=== PATIENT | male | born 1950 | race Caucasian/White ===

== ENCOUNTER 2017-02-01 19:49 | Inpatient (IN) | payer SELFPAY ==
[~2017-02-01] VITALS: Ht 182.9 cm; Wt 77.3 kg
--- NOTE | ~2017-02-01 | HP ---
PATIENT'S NAME: SHAINA KILPATRICK [facility] AGE: 66 Y [address] ROOM: G6323 [place], [place] [address] [facility]ATION: [facility] ADMIT DATE: 02/01/2017 History & Physical DISCHARGE DATE: FAMILY PHYSICIAN: PHYSICIAN, UNKNOWN ATTENDING PHYSICIAN: ROBLES PINEDA DATE OF SERVICE: CHIEF COMPLAINT: Lightheadedness and syncope. HISTORY OF PRESENT ILLNESS: This is a 66-year-old male who rarely see a physician and does not have any primary care physician and says that he does not have any past medical history and is generally healthy per the patient. The patient was never a cigarette smoker and also does not use alcohol. His father does have a problem with the heart, which he states is from the slow heart rate, but he does not know much details about it. His mother does not have any heart problem. He is the only son and does not have any sibling. The story is that he was gardening last night around 7 p.m. in the yard and while he was in the kneeling position, the patient felt lightheaded and what he described as vertigo and after that the patient did not remember much and he was found by the to be confused and disoriented and he was having a little bit of slight right-sided facial droop, but he was not really talking much, but he was also not making much sense. He could have had a slurred speech, but the family member were not so sure. The patient was what they describe as unresponsive where he was not really following commands or talking and they say that the patient was like that for roughly 20-30 minutes according to the family member. The called the ambulance and the patient was brought here. During the ambulance ride, the patient was found to have heart rate in the 40, the blood pressure was not clear whether it was low or normal, but heart rate was found to be in the 40s, and the patient was given one dose of atropine in the ambulance, and the patient responded and became more alert. When the patient arrived here, heart rate went down again to the 40s and the patient again became confused and lethargic and another dose of atropine was given in the emergency room and the patient became more alert. During all this time, the patient denies any chest pain, shortness of breath, blurry vision, diaphoresis, nausea, vomiting, palpitation, or cough. The patient has never had this symptom before. The patient says his appetite has been fairly good, he drank and he ate normal, and he makes good urine. He said the urine color is clear yellow. Denies any trauma. He does state that his father also has a problem with the slow heart rate, but he does not know much details about that. The told me that they usually sometimes check blood pressure at home, he usually runs in the 100-110 systolic, heart rate usually runs in the 50s at home. PATIENT'S NAME: SHAINA KILPATRICK [facility] AGE: 66 Y [address] ROOM: [address] [address] LOC[facility] ADMIT DATE: 02/01/2017 History & Physical DISCHARGE DATE: FAMILY PHYSICIAN: PHYSICIAN, UNKNOWN ATTENDING PHYSICIAN: ROBLES PINEDA REVIEW OF SYSTEMS: As mentioned in history of present illness. All other system reviewed were negative except those mentioned in history of present illness. PAST MEDICAL HISTORY: No known past medical history. ALLERGIES: NO KNOWN DRUG ALLERGIES. HOME MEDICATIONS: None. SOCIAL HISTORY: The patient denies any alcohol, cigarette, or illegal drug use. FAMILY HISTORY: Father has a sinus bradycardia, but details not clear. Mother has diabetes and also breast cancer. He is the only son. PAST SURGICAL HISTORY: None. PHYSICAL EXAMINATION: VITAL SIGNS: Temperature 98, blood pressure 120/70, heart rate 61, saturation 100% on 1 L nasal cannula, and respiration 14. GENERAL APPEARANCE: Alert and oriented x3, in no acute distress. HEENT: Pupils equally round and reactive to light. Extraocular muscles intact. Anicteric sclerae. Nasal turbinates are normal bilaterally. Moist oral mucosa. NECK: No JVD. CARDIOVASCULAR: Regular rate and rhythm. Normal S1, S2. No murmur, no rubs, no gallops. RESPIRATORY: Clear. Chest wall nontender to palpation. ABDOMEN: Soft, nontender, nondistended, normal bowel sounds, and no hepatosplenomegaly. Bowel sounds are present. EXTREMITIES: No edema in upper or lower extremities. NEUROLOGIC: Grossly nonfocal. Cranial nerves 2 through 12 intact. No slurred speech. No facial droop. No tongue deviation upon protrusion. Pronator drift negative. Babinski negative. Sensation and muscle strength are intact. Proprioception and vibration also intact. Fqtgns-cq-phic intact. Kqib-sn-xzpv intact. In general, grossly unremarkable. SKIN: No ulcer, no rash, no cyanosis. MUSCULOSKELETAL: No joint pain and no muscle pain. Range of motion intact. PATIENT'S NAME: SHAINA KILPATRICK [facility] AGE: 66 Y [address] ROOM: [place] [address] LOC[facility]: [facility] ADMIT DATE: 02/01/2017 History & Physical DISCHARGE DATE: FAMILY PHYSICIAN: PHYSICIAN, UNKNOWN ATTENDING PHYSICIAN: ROBLES PINEDA LABORATORY DATA: Lactic acid 0.8. Troponin less than 0.04 x2. CPK 178 x2. CK-MB 1.8 x2. I think the second set was a duplicate of the first set. White blood cells 7.1, hemoglobin 12.7, hematocrit 38.2, MCV 90.1, platelet 205, glucose 84, and creatinine 1.0. Sodium 143, potassium 3.9, chloride 110, BUN 24, CO2 25, calcium 8.0, total protein 6.6, albumin 3.7, AST 16, ALT 22, alkaline phosphatase 48, total bilirubin 0.4, magnesium 2.1, anion gap 11.9, and GFR more than 60. INR 1.05, PT 28. Urinalysis negative for UTI. Urine drug screen negative. Alcohol level, Tylenol, and aspirin level all less than the toxic level. CK-MB was 1.8, the second set was 1.8, but I think this is duplicate from the first set. TSH 1.9. Free T4 1.0. Procalcitonin less than 0.05. D-dimer 0.3. IMAGING STUDIES: 1. Chest x-ray on admission, the official reading is pending, by review unremarkable. 2. CT of the brain without contrast based on the preliminary report on admission was unremarkable. 3. EKG: Total of 4 EKGs were performed. The first EKG was performed on the ambulance and it was done on February 01, 2017, at 7:33 p.m., it shows sinus bradycardia, heart rate of 43 beats per minutes, MS of 0.178 seconds, QTc of 0.439 seconds, QRS of 0.108 seconds, and I do appreciate a T-inversion in the lead #3. No prior EKG for comparison. Repeat EKG here in the emergency room on February 01, 2017 at 7:49 p.m. show sinus rhythm, heart rate 91, this is after atropine, MS of 160 milliseconds, QRS of 140 milliseconds, QTc 450 milliseconds, and I could appreciate ST-depression in lead V3, V4, V5, V6, II, III, and aVF, which corresponds to septal, lateral, and inferior leads. Since that also had a T-inversion as well in lead III, but the T-wave looks flattened in T3 on this EKG. Repeat EKG in the #3 on February 01, 2017, at 7:50 p.m. shows sinus rhythm, heart rate of 87 beats per minute, MS interval 163 milliseconds, QRS duration 108 milliseconds, QTc 490 milliseconds, and still with ST-depression in the anterior, septal, lateral, and inferior leads in V2, V3, V4, V5, V6, II, III, and aVF. Still with a T-inversion in the lead #3. Repeat EKG #4 on February 01, 2017 at 8:57 p.m. shows sinus rhythm, heart rate of 61 beats per minute, MS 167 milliseconds, QRS 108 milliseconds, and QTc [address] depression already resolved, but still has the persistent T-inversion in the lead #3. ASSESSMENT AND PLAN: 1. Regarding his syncope in the setting of sinus bradycardia and transient ST-depression (no chest pain) as well as persistent T-inversion on the EKGs: Differential here could include ischemic heart disease. The patient is a 66-year- PATIENT'S NAME: SHAINA KILPATRICK [facility] AGE: 66 Y [address] ROOM: [id number] [place] [id number] LOC[facility]: [facility] ADMIT DATE: 02/01/2017 History & Physical DISCHARGE DATE: FAMILY PHYSICIAN: PHYSICIAN, UNKNOWN ATTENDING PHYSICIAN: ROBLES PINEDA old male, but does not really have cardiac risk factors, but at the same time, he rarely sees a physician and rarely has regular followup or checkup. The plan will be n.p.o. after midnight. Continue telemetry monitoring and leave the pacing pads on the patient at all times. He can also use epinephrine drip or dopamine drip in case the patient has symptomatic sinus bradycardia. I will get an echo in the morning transthoracic and also get EKG in the morning and again cycle cardiac enzymes every 6 hours. I will consult Cardiology in the morning. The patient denies any chest pain. If the enzymes goes up or has chest pain, I will do acute coronary syndrome protocol. Further plan depends on clinical course. I will check A1c and also a lipid panel in the morning. Can have cardiac diet until midnight and then n.p.o. Atropine can also be used in case of symptomatic bradycardia. I do not appreciate heart block on EKG. 2. Regarding his questionable history of transient slurred speech and confusion: Will observe closely, will follow up with official report of head CT which was initially interpreted as preliminary, will consider MRI brain and MRA brain and neck after CT head without contrast's report is finalized. 2. Regarding his deep vein thrombosis prophylaxis: Compression devices for now in case the patient will require any invasive intervention. 3. Code status: He is a full code. Time spent in care on the day of admission 35 minutes including chart review, interviewing the patient, examining the patient, addressing all the questions and concern that the patient had, I also went over the plan of care in detail with the patient and nurses and also with the patient's family member. The patient's name is Klarissa, phone #[phone]. The patient and the patient's family member are up-to-date with the care plan and is in agreement with the plan. Further plan depends on clinical course. ROBLES PINEDA MD CC/dashawnl /[id number] D: T: 359 HISTORY & PHYSICAL
--- NOTE | ~2017-02-01 | ECHO ---
Transthoracic Echocardiography Report (TTE) Demographics Patient Name SHAINA KILPATRICK Date of Study 02/02/2017 J Patient Number [id number] Visit Number [id number] Date of 1950 Room Number G6323 Gender Male Number Age 66 year(s) Referring Nora Nieto MD Environmental Maintenance Worker Ciera Brown [facility] Physician Physician Interpreting Samira Johnson Bench Hand Machine Physician Evon JOHN Supervising Ordering MD/MLP Physician Nurse Stress Food Porter Conclusions Contractility Score Summary Normal Left Ventricular contractility was noted. Summary The estimated left ventricular ejection fraction is 55%. The left ventricle is normal in size . Diastolic assessment reveals Grade II pseudonormal diastolic function. . The left atrium is mildly dilated by LA volume index measurement. Trivial mitral regurgitation by color Doppler. Mild tricuspid regurgitation by color Doppler. Normal estimated pulmonary artery pressure. Procedure Type of Study TTE procedure:2D Echocardiogram. Procedure Date Date: 02/02/2017 Start: 09:05 AM Study Location: Inpatient Portable Technical Quality: Good visualization Indications:Syncope. Appropriate Use Criteria: 9 Patient Status: Routine HR: 45 bpm BP: 115/56 mmHg M-Mode/2D Measurements LV Diastolic Dimension: 5.12 cm LV Systolic Dimension: 3.03 cm LV Septum Diastolic: 1 cm LV Septum Systolic: 1.17 cm LV PW Diastolic: 1.02 cm LV PW Systolic: 1.13 cm Cardiac Output: 3.89 l/min AO Root Dimension: 2.6 cm RV Diastolic Dimension: 3.31 cm LA Dimension: 3.9 cm EF Estimated: 55 % LA volume: 77 ml RV Base: 3.1 cm LVOT: 2 cm RV Mid: 3.21 cm LVOT VTI: 27.5 cm RV Length: 6.76 cm LV Stroke volume: 86.35 ml TDI-S': 14.7 cm/s Doppler Measurements AV Peak Velocity: 1.68 m/s MV Peak E-Wave: 0.83 m/s AV Peak Gradient: 11.29 mmHg MV Peak A-Wave: 0.52 m/s AV Mean Gradient: 5 mmHg MV E/A Ratio: 1.61 LVOT Peak Velocity: 1.24 m/s MV P1/2t: 76 msec TR Gradient:10.63 mmHg PV Peak Velocity: 1.06 m/s Estimated RAP:10 mmHg PV Peak Gradient: 4.49 mmHg Estimated RVSP: 21 mmHg Estimated PASP: 20.63 mmHg E' Septal Velocity: 0.07 m/s A' Septal Velocity: 0.12 m/s Findings Left Ventricle The left ventricle is normal in size . Diastolic assessment reveals Grade II pseudonormal diastolic function. . Right Ventricle Normal right ventricle structure and function. Left Atrium The left atrium is mildly dilated by LA volume index measurement. Right Atrium Normal right atrial size. IVC measures 1.7 cm with inspiratory collapse. Mitral Valve Trivial mitral regurgitation by color Doppler. Aortic Valve Normal aortic valve structure and function. Tricuspid Valve Mild tricuspid regurgitation by color Doppler. Normal estimated pulmonary artery pressure. Pulmonic Valve Normal pulmonic valve structure and function. Pericardial Effusion No evidence of pericardial effusion. Pleural Effusion No evidence of pleural effusion. Contractility Score LV regional wall motion:(0-Non visualized 1-Normal 2-Hypokinesis 3-Akinesis 4-Dyskinesis 5-Aneurysm) Signature dtt: Alexys Hogan dtd: 02/02/17 0905 Physician Self Edit
--- NOTE | ~2017-02-01 | CON ---
PATIENT'S NAME: SHAINA KILPATRICK [facility] AGE: 66 Y [address] ROOM: [place] [address] LOCATION: [facility] ADMIT DATE: 02/03/2017 Consultation DISCHARGE DATE: FAMILY PHYSICIAN: PHYSICIAN, UNKNOWN ATTENDING PHYSICIAN: ROBLES PINEDA DATE OF CONSULTATION: 02/03/2017 REFERRING PHYSICIAN: Alexys Hogan MD CONSULTATION NOTE REFERRING PHYSICIAN: This is a consult for Dr. Hinojosa, hospitalist. HISTORY OF PRESENT ILLNESS: This 66-year-old gentleman is referred for rehabilitation evaluation. He was admitted on 02/01/2017 with sudden onset of lightheadedness and dizziness with vertigo, some confusion also, and the tells me that she notes initially a very mild right facial droop. All have now improved back to normal. He had also some questionable slurring of his speech. No previous ill health. No previous similar condition. Denied any trauma. No fever. No cough. No expectoration. No shortness of breath. No chest pain. Denied any previous heart issues. Does not see any doctor, and has been doing well and very active in his words. Does not smoke and/or drink. He denied at the present time, any headache. No double vision. No difficulty with his vision. No difficulty with his balance at the present time. No dizziness, and he can breathe well. He can talk, comprehend, express without difficulty. His speech is clear and not wet. He can at the present time move all 4 without difficulty. Muscle strength throughout 4+ to 5/5. Deep tendon reflexes are present and equal throughout, 1+. He has good bowel and bladder control. No sensation decrease or loss. No weakness. No coordination difficulty. He has good bowel and bladder control as I mentioned. VITAL SIGNS: Blood pressure 137/61, temperature 97.1, pulse 56 and regular, and respiratory rate 18. He is 5 feet 11 inches and weighs 77.3 kg. He can ambulate without difficulty. IMAGING STUDIES: PATIENT'S NAME: SHAINA KILPATRICK [facility] AGE: 66 Y [address] ROOM: [address] [address] LOCATION: [facility]U ADMIT DATE: 02/03/2017 Consultation DISCHARGE DATE: FAMILY PHYSICIAN: PHYSICIAN, UNKNOWN ATTENDING PHYSICIAN: ROBLES PINEDA At the present time, his MRI shows a small acute/subacute ischemic infarct in the left thalamus. CURRENT MEDICATIONS: He is on the following medications: 1. Lipitor. 2. Aspirin. 3. Sodium chloride 0.9%. 4. Atropine solution. 5. Dextrose 5%. This gentleman upon admission had slight bradycardia around 40s, at the present time is doing well. ASSESSMENT AND PLAN: At the present time, he is doing well. I would recommend that he should not drive until he is re-evaluated, and I would like to follow on him on outpatient basis. All the above was explained to him, and please see the orders, and he verbalized understanding and agreement. Thank you for this referral. I will be following alongside with you. MD AUTUMN GASPAR/modl /[id number] d: 02/03/17 2151 t: 02/04/17 0810, CONSULTATION REPORT
--- NOTE | ~2017-02-01 | DS ---
PATIENT'S NAME: SHAINA KILPATRICK [facility] AGE: 66 Y [address] ROOM: [address] [place], [place] [address] LOCATION: [facility]U ADMIT DATE: 02/03/2017 Discharge Summary DISCHARGE DATE: 02/05/2017 FAMILY PHYSICIAN: Physician, Unknown ATTENDING PHYSICIAN: Fabian Melendez PRIMARY DIAGNOSES: 1. Left thalamic cerebrovascular accident, ischemic. 2. Patent foramen ovale. 3. Bradycardia. 4. Acute encephalopathy. 5. Right-sided weakness. OPERATIONS/PROCEDURES: Echocardiography was obtained on 02/02/2017, demonstrating normal ejection fraction at 50% to 55%, diastolic dysfunction, and mildly dilated left atrium. Lexiscan Cardiolite performed on 02/03/2017, was negative for ischemia. Transesophageal echocardiography obtained on 02/05/2017, confirmed an ejection fraction of 60%, [id number] dilatation of left atrium, and mildly positive bubble study consistent with a small patent foramen ovale. CT scan of the brain obtained on 02/01/2017, was negative for any acute intracranial process. MRI scan of the brain obtained on 02/02/2017, demonstrated left thalamic infarct 12 x 7 mm. MRA of the neck obtained on 02/03/2017, showed normal carotid arteries. HISTORY OF PRESENTING ILLNESS/REASON FOR ADMISSION: Please refer to the H and P dictated on 02/01/2017. HOSPITAL COURSE: The patient was admitted to hospital as noted above with a presumptive diagnosis of syncope. His initial evaluation revealed bradycardia and it was felt that he probably had symptomatic bradycardia. Interestingly, he had some right-sided weakness, expressive aphasia, and right- sided facial droop at the point of his syncopal episode, but these had resolved by his emergency room evaluation. He did undergo a fairly extensive evaluation including head CT, which was negative for stroke and was seen and evaluated by Cardiology. It was not felt there were any strong indications for permanent pacemaker placement. He was placed on the progressive care unit and monitored. He remained hemodynamically stable over the course of his hospital stay. After his initial evaluation on admission, it was revealed that he had experienced the right-sided weakness and expressive aphasia. Subsequently, MRI scan of the brain was obtained and this demonstrated the left thalamic stroke. He did have Physical Therapy, Occupational Therapy, and Speech Therapy evaluations as well as Physiatry evaluation by Dr. Cornell. He was placed on aspirin PATIENT'S NAME: SHAINA KILPATRICK [facility] AGE: 66 Y [address] ROOM: [address] [place], [place] [address] LOCATION: [facility]U ADMIT DATE: 02/03/2017 Discharge Summary DISCHARGE DATE: 02/05/2017 FAMILY PHYSICIAN: Physician, Unknown ATTENDING PHYSICIAN: Fabian Melendez therapy and recommended to start statin therapy. I spent a significant amount of time explaining therapeutic risks and benefits with statin therapy, but the patient ultimately refused to take statins. He was agreeable to taking aspirin. Based on his clinical presentation and relative paucity of stroke risk factors including normal blood pressure, normal cholesterol, no strong family history, and no other stroke risk factors, it was suspected that the patient might have patent foramina ovale. He underwent PER with the findings outlined above. We did obtain Neurology consultation expecting to discuss the need for long-term anticoagulation. Anticoagulation was recommended by Cardiology on the basis of suspicion for cardioembolic source for stroke. This was twofold based on a presence of a small PFO and also at least mild suspicion for paroxysmal atrial fibrillation. He did not have any atrial fibrillation over the course of his hospital stay here. Neurology did not recommend anticoagulation, however, and did suggest aspirin and statin therapy. The patient continued to refuse statin therapy. By the end of the day on 02/05/2017, it was felt he would be stable enough for discharge to home. We spent a long time discussing Neurology specialty evaluation and Cardiology specialty evaluation, and their respective recommendations. The patient requested for discharge to home and to get a second opinion by Cardiology and Neurology on an outpatient basis. He was agreeable and in fact requested for anticoagulation therapy with novel anticoagulants including Xarelto. We discussed anticoagulant risks and options including warfarin versus a novel anticoagulant. He decided that he wanted Xarelto in order to preclude the possibility of interacting with green leafy vegetables as he is strongly plant based diet. I did place him on Xarelto 20 mg p.o. daily and counseled the potential risks including severe side effects such as gastrointestinal bleeding, intracranial hemorrhaging, etc. He voiced understanding and requested to be placed on this medication to preclude the possibility of recurrent risk in light of the possibility of paroxysmal atrial fibrillation and the presence of the PFO. Lastly, we recommended extended cardiac monitoring with a 2-week event monitor. This was arranged at the point of discharge, however, because the patient did not have any insurance and it was required to pay a significant amount of money up front, he declined event monitor placement. DISCHARGE INSTRUCTIONS: Diet, cardiac prudent as tolerated. Activity, as tolerated. No driving until reevaluated by his primary care provider. MEDICATIONS: 1. Xarelto 20 mg p.o. daily. 2. Atorvastatin 40 mg p.o. daily (he is currently refusing to take this). FOLLOWUP: He will follow up with Dr. Yi, chair, in 5 to 7 days. PATIENT'S NAME: SHAINA KILPATRICK [facility] AGE: 66 Y [address] ROOM: [place] [address] LOCATION: [facility]U ADMIT DATE: 02/03/2017 Discharge Summary DISCHARGE DATE: 02/05/2017 FAMILY PHYSICIAN: Physician, Unknown ATTENDING PHYSICIAN: Fabian Melendez He will follow up with Dr. Guillermo, neurologist, for a second opinion regarding recommendation for anticoagulation and stroke therapy. He will follow up with Dr. Cornell, Physiatry, in 1 to 2 weeks. He will also contemplate and schedule outpatient followup with his primary care provider of his choice in the upcoming 7 to 10 days. He was undecided on primary care provider at the time of discharge. CONDITION ON DISCHARGE: Good. TOTAL TIME SPENT ON DISCHARGE PROCESS: 60 minutes. MD NATHAN MORTON/holly /[id number] d: 02/06/17 0333 t: 02/19/17 1726, DISCHARGE SUMMARY
--- NOTE | ~2017-02-01 | ECHO ---
Transesophageal Echocardiography Report (PER) Demographics Patient Name SHAINA KILPATRICK Date of Study 02/05/2017 Patient Number [id number] Visit Number [id number] Date of 1950 Room Number G6323 Gender Male Number Age 66 year(s) Referring Samira Johnson Senior Landscape Architect Thania Barnard MD RDCS, RVT Physician Interpreting Samira Systematic Theology Professor Physician Alex Barnard MD Supervising Ordering Samira JOHN/MLP Physician Alex Barnard MD Nurse Stress Manager Field Conclusions Summary The left ventricle is normal in size . Estimated EF: 60 %. The left atrium is mildly to moderately dilated. No left atrial masses including the appendage. Mildly positive bubble study. Small PFO Procedure Type of Study PER procedure Procedure Date Date: 02/05/2017 Start: 09:23 AM Study Location: Inpatient Portable Technical Quality: Adequate visualization Indications:Syncope, CVA and Bradycardia. Appropriate Use Criteria: 9 Patient Status: Routine HR: 66 bpm BP: 146/69 mmHg O2 Saturation: 90 % PER Performed By: Alexys Hogan MD Type of Anesthesia: Moderate sedation Findings Left Ventricle The left ventricle is normal in size . Estimated EF: 60 %. Right Ventricle Normal right ventricular size and function. Left Atrium The left atrium is mildly to moderately dilated. No left atrial masses including the appendage. Right Atrium Mildly positive bubble study. Small PFO Mitral Valve Borderline prolapse of the mitral valve. Trivial mitral regurgitation with multiple small jets Aortic Valve Normal trileaflet aortic valve. There is trivial aortic regurgitation. Tricuspid Valve Trivial tricuspid regurgitation . Pulmonic Valve Trivial pulmonic valve regurgitation. The pulmonic valve is not well visualized. Pericardial Effusion No pericardial effusion. Miscellaneous No significant thoracic aorta atherosclerosis. Signature dtt: Alexys Hogan dtd: 02/05/17 0923 Physician Self Edit
--- NOTE | ~2017-02-01 | ER ---
PATIENT'S NAME: SHAINA KILPATRICK [facility] AGE: 66 Y [address] ROOM: [place] [address] LOCATION: GPCU ADMIT DATE: 02/01/2017 ER/Outpatient Report DISCHARGE DATE: FAMILY PHYSICIAN: PHYSICIAN, UNKNOWN ATTENDING PHYSICIAN: ROBLES PINEDA Time of Arrival: 1949 hours. Time of Evaluation: 1949 hours. CHIEF COMPLAINT: Unresponsive. HISTORY OF PRESENT ILLNESS: The patient is a 66-year-old male, who presents to the emergency department today after an unresponsive episode. The patient is accompanied by his . Apparently, the patient was out gardening when he became tired and slumped to the ground. He was unresponsive for about 15 minutes. There was no loss of pulse. Denies any fevers or chills. No nausea or vomiting. No diarrhea or constipation. No headache. No abdominal pain. Denies any chest pain or shortness of breath beforehand. He reports he felt a coming on pain 0/10 in severity. When EMS arrived, they did note that his heart rates were in the 40s. They did give 1 mg of atropine. The patient did become more responsive. He is brought to the emergency department for further evaluation and treatment. PAST MEDICAL HISTORY: None. PAST SURGICAL HISTORY: None. SOCIAL HISTORY: The patient denies any tobacco, alcohol, or illicit drug use. ALLERGIES: NO KNOWN DRUG ALLERGIES. MEDICATIONS: None. PRIMARY CARE DOCTOR: None. REVIEW OF SYSTEMS: All systems are reviewed by myself and are negative with the exception of PATIENT'S NAME: SHAINA KILPATRICK [facility] AGE: 66 Y [address] ROOM: [place] [address] LOCATION: GPCU ADMIT DATE: 02/01/2017 ER/Outpatient Report DISCHARGE DATE: FAMILY PHYSICIAN: PHYSICIAN, UNKNOWN ATTENDING PHYSICIAN: ROBLES PINEDA those discussed in the HPI and past medical history. PHYSICAL EXAMINATION: VITAL SIGNS: Weight 75.5 kg, blood pressure 166/76, pulse 95, respiratory rate 16, temperature 96.7, oxygen saturation 100% on room air. GENERAL: The patient is a 66-year-old male, who appears stated age. He is sleepy, arousable to voice. He is oriented to person, place, time, and time. HEENT: Pupils are equal, round, and reactive to light and accommodation. Extraocular motions are intact. Nares are patent bilaterally. TMs are clear. Mucous membranes are moist. Oropharynx is otherwise clear. NECK: Supple. There is no nuchal rigidity. CARDIOVASCULAR: Regular rate and rhythm. No murmurs, rubs, or gallops. LUNGS: Clear to auscultation bilaterally. No wheezes, rales, or rhonchi. ABDOMEN: Soft, nontender, and nondistended. No rebound, rigidity, or guarding. MUSCULOSKELETAL: The patient moves all 4 extremities. NEUROLOGICAL: Normal facial sensation. Normal facial movement. No slurring of the speech. Normal shoulder shrug. Equal shipping packer strength bilaterally. No pronator drift. 5/5 muscle strength bilateral upper and lower extremities. Downward going toes. No clonus. 2/4 reflexes. SKIN: Warm and dry. LABORATORY DATA AND X-RAYS: EKG is obtained at 1954 hours, is interpreted by myself shows sinus rhythm with a rate of 91, normal axis, normal interval. There is ST depression in V4 through V6. CT scan of the brain is obtained. I have discussed the results with radiologist, shows no acute process. Alcohol is less than 0.01. Acetaminophen is less than 2. Salicylate is normal. Free T4 and TSH are normal. Pro-BNP is normal. CMP is normal. LFTs are normal. Magnesium is normal. Cardiac enzymes normal. Chest x-ray shows no acute process. Urinalysis is unremarkable. Procalcitonin is normal, less than 0.05. D-dimer is normal. CBC is normal. Coags are normal. Lactate is normal. Repeat EKG at 2102 hours is obtained, is interpreted by myself shows sinus rhythm with a rate of 61, normal axis, normal interval. No ST elevation, ST depression. There are T-wave inversions in III and aVF. IMPRESSION: 1. Syncope. 2. Sinus bradycardia. 3. Abnormal EKG with ST depression and T-wave inversions noted. 4. Altered mental status. 5. Initial visit. PATIENT'S NAME: SHAINA KILPATRICK [facility] AGE: 66 Y [address] ROOM: [address] [address] LOCATION: GPCU ADMIT DATE: 02/01/2017 ER/Outpatient Report DISCHARGE DATE: FAMILY PHYSICIAN: , UNKNOWN ATTENDING PHYSICIAN: ROBLES PINEDA EMERGENCY DEPARTMENT COURSE: The patient was brought back to the examination room. Seen and evaluated by myself immediately upon arrival. IV is established. Laboratory analysis and imaging are obtained as described above. The patient was given 2 L normal saline. He was more responsive, and then during his stay as well he did decline unresponsiveness. His heart rate also decreased, and we did give another 0.5 mg of atropine, which seemed to help both his heart rate as well as his mental status. I have discussed results with the patient and his and family, who are at the bedside. I have recommended admission to the hospital for further evaluation, treatment, and management. I have contacted Dr. Pineda with the Hospitalist Service. He has seen and evaluated the patient down here in the emergency department. Please see his dictation. DISPOSITION: The patient is admitted under the care of the Hospitalist Service and Dr. Pineda in stable condition. DO APURVA ESPOSITO/modl /[id number] d: 02/02/17252 t: 02/02/171932, OUTPATIENT REPORT
--- NOTE | ~2017-02-01 | ESTC ---
Cardiac Perfusion Imaging Demographics Patient Name SHONNA Ortiz Gender Male Patient Number [id number] Race Visit Number [id number] Ethnicity Corporate ID Room Number G6323 Accession Number [id number] Height 72 inches Date of 1950 Weight 170 pounds A Interpreting Bruce Flores Date of study 02/03/2017 Physician MD Supervising /GLADIS Jimenez APRN NM Technologist [place] Bermeo Ordering Physician Stress manufacturing production technician Stress ECG Reading Eduarda Jimenez APRN Nurse Lisa Hogan RN Physician The procedure was explained in detail to the patient. Risks, complications and alternative treatments were reviewed. Written consent was obtained. Medications Reviewed with Patient prior to Procedure. Procedure Procedure Type: Nuclear Stress Test:Pharmacological, Lexiscan, Cardiolite Stress Test Procedure Start time: 02/03/2017 10:02 End time: 02/03/2017 10:15 Indications: Syncopal Episode. Conclusions Summary Perfusion Images: The overall quality of the study is good. Left ventricular cavity is noted to be normal on the stress and normal on the rest images. There is no evidence of abnormal lung activity. The right ventricle is not visualized an cannot be assessed. Impression ECG portion of lexiscan stress test is clinically negative for ischemia by diagnostic criteria. Myocardial perfusion imaging is normal. The apical wall matched defect is consistent with apical thinning. Overall left ventricular systolic function was normal without regional wall motion abnormalities. Calculated LVEF is 63% and TID ratio is 1.04. There are no previous studies for comparison . Stress Protocols Resting ECG Normal sinus rhythm. Pre-stress physical exam: Patient assessed by Sonya GOODWIN prior to testing. Predicted HR: 156 bpm HR response: Appropriate BP response: Appropriate Reason for termination:Infusion complete ECG Findings No ECG changes suggestive of ischemia. Arrhythmias No rhythm abnormality. Symptoms Shortness of breath. Warmth Complications Procedure complication: None. Stress Interpretation Appropriate hemodynamic response to Lexiscan. No significant ST-T wave changes with Lexiscan. ECG portion is negative for ischemia by diagnostic criteria. Will correlate with nuclear images. Imaging Results Summed scores - Summed stress score: 5 - Summed rest score: 7 - Summed difference score: -2 Stress ejection Ejection fraction:64 % EDV :143 ml ESV :52 ml Stroke volume :91 ml LV mass :137 gr Imaging Protocols Rest Stress Isotope:Tc99m Sestamibi IV Isotope: Tc99m Sestamibi IV Isotope dose:12.2 mCi Isotope dose:39 mCi Date:02/03/2017 07:52 Date:02/03/2017 10:03 Technique: SPECT Technique: Gated Supine SPECT Supine IV remains in place after procedure. Scan Time:45-60 minutes post Scan Time:45-60 minutes post injection injection Procedure Medications - Regadenoson (Lexiscan) 0.4 mg IV over 10-15 sec. I.V. 0.4 mg. Medications administered per verbal order and read back to physician prior to administration. Medical History Admission Data Admission date: 02/03/2017 Admission Time: 11:04 Hospital Status: Inpatient. Signatures dtt: JUDE VICTORIA dtd: 02/03/17 1002 Physician Self Edit
--- NOTE | ~2017-02-01 | CON ---
PATIENT'S NAME: SHAINA KILPATRICK [facility] AGE: 66 Y [address] ROOM: [place] [address] LOCATION: GPCU ADMIT DATE: 02/01/2017 Consultation DISCHARGE DATE: FAMILY PHYSICIAN: PHYSICIAN, UNKNOWN ATTENDING PHYSICIAN: FABIAN PINEDA REFERRING PHYSICIAN: Raymundo Lehman MD REQUESTING PHYSICIAN: Fabian Pineda MD REASON: Syncope. HISTORY OF PRESENT ILLNESS: The patient is a 66-year-old man, generally healthy, who yesterday evening, was working in his yard. His was present. He took a drink of carbonated water and went back to his activity, and then he felt lightheaded, his vision dimmed, and his said that he slumped to the ground. She was able to feel a pulse. He would try to speak, but would not make sense. She thought that there was some drooping of the right side of his mouth and may be some weakness of the corporate director talent assessment on the right side as well. He did not appear to improve, so the paramedics were called. He received a dose of atropine with some improvement because he was found to be bradycardic. The thinks also that he became much more conscious after the Aburto catheter was inserted. Apparently, he received a second dose of atropine in the emergency room. He had a complete evaluation including CT of the head that was negative, CT of the abdomen which was normal, cardiac enzymes and proBNP which were normal. Electrocardiogram showed mild repolarization changes. The patient was admitted, and overnight, he had some sinus bradycardia, but no other arrhythmias. Today, he is alert and oriented, but he looks a little weak. He needed assistance to sit up in bed. D-dimer was also normal, and the TSH is normal. PAST MEDICAL HISTORY: None. PAST SURGICAL HISTORY: None. MEDICATIONS: He does not take any medications, although he takes some nutritional supplements and vitamin D. 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 He reports no shortness of breath, PATIENT'S NAME: SHAINA KILPATRICK [facility] AGE: 66 Y [address] ROOM: [place] [address] LOCATION: GPCU ADMIT DATE: 02/01/2017 Consultation DISCHARGE DATE: FAMILY PHYSICIAN: PHYSICIAN, UNKNOWN ATTENDING PHYSICIAN: FABIAN PINEDA fatigue, or chest discomfort with this activity. . They have 9 kids. His is an RN who retired after her fifth child. The patient is one of 14 siblings. Two are diabetic. His mother also has diabetes and breast cancer. His father has sinus bradycardia, but no other abnormalities. REVIEW OF SYSTEMS: Other than what is noted in the History of Present Illness, is negative. PHYSICAL EXAMINATION: VITAL SIGNS: He is 6 feet, weighs 77.3 kg. Blood pressure 111/54, pulse 52, and temperature 97.9. GENERAL: He is alert and oriented. HEAD: Normocephalic and atraumatic. NECK: Supple. There are no carotid bruits. No jugular venous distention. No thyromegaly. No lymphadenopathy. LUNGS: Clear. HEART: Regular first and second heart sounds. No significant murmur. ABDOMEN: Mildly obese. LOWER EXTREMITIES: No peripheral edema, 2+ dorsalis pedis pulses. LABORATORY AND DIAGNOSTIC STUDIES: As mentioned in the History of Present Illness. His chest x-ray also is normal. IMPRESSION: Syncope of unclear etiology. Sinus bradycardia could contribute, but right now, he does not fulfill the criteria for a pacemaker. Possibly, MRI of his brain could help given what his describes. Because of the abnormal electrocardiogram and his age, we will order a nuclear stress test. There is no nuclear dose to do it today, so we will do it in the a.m. Thank you for allowing me to participate in the care of your patient. RAYMUNDO LEHMAN MD PE/holly /[id number] d: 02/02/17 1136 t: 02/02/17 1510, CONSULTATION REPORT
[2017-02-01 20:08] LABS: BASOPHIL % 0.6 %; EOSINOPHIL # 0.2 K/uL (0.0-0.5); EOSINOPHIL % 3.4 %; HEMATOCRIT 38.2 % (37.0-53.0); HEMOGLOBIN 12.7 g/dL (11.0-16.0); IMMATURE GRANULOCYTE % 0.3 %; LYMPHOCYTE # 2.1 K/uL (0.8-4.0); LYMPHOCYTE % 29.2 %; MCHC 33.2 gm/dL (32.0-36.5); MCV 90.1 fl (83.0-98.0); MONOCYTE # 0.5 K/uL (0.0-1.0); MONOCYTE % 7.6 %; NEUTROPHIL # (ANC) 4.2 K/uL (1.4-9.0); NEUTROPHIL % 58.9 %; NRBC % 0 /100WBC (0-0.00); PLATELET COUNT 205 K/uL (150-450); RBC 4.24 M/uL (3.50-5.50); RDW-CV 11.9 % (11.9-14.6); WBC 7.1 K/uL (4.0-11.0)
[2017-02-01 20:18] LABS: INR - (THERAPEUTIC) 1.05 (0.92-1.07); PTT 28 SECONDS (25-32)
[2017-02-01 20:30] LABS: ALBUMIN 3.7 gm/dL (3.5-5.0); ALK PHOS 48 IU/L (33-138); ALT 22 IU/L (12-78); ANION GAP 11.9 (10.0-19.0); AST 16 IU/L (10-40); BLOOD UREA NITROGEN 24 mg/dL (6-24); CHLORIDE 110 mMol/L (96-110); CO2 25 mMol/L (22-32); CPK 178 IU/L (35-332); ESTIMATED GFR (MDRD EQUATION) > 60; MAGNESIUM 2.1 mg/dL (1.8-2.6); POTASSIUM 3.9 mMol/L (3.7-5.1); SODIUM 143 mMol/L (135-145); TOTAL BILIRUBIN 0.4 mg/dL (0.0-1.5); TOTAL PROTEIN 6.6 g/dL (6.0-8.4)
[2017-02-01 21:43] LABS: BILIRUBIN URINE NEGATIVE (NEGATIVE); BLOOD URINE 10 /UL (NEGATIVE); GLUCOSE URINE NEGATIVE (NEGATIVE); KETONE URINE 15 mg/dL (NEGATIVE); LEUKOCYTES URINE NEGATIVE /UL (NEGATIVE); NITRITE URINE NEGATIVE (NEGATIVE); PH URINE 6.5 (4.0-8.0); PROTEIN URINE NEGATIVE (NEGATIVE); UROBILINOGEN URINE NORMAL (NORMAL)
[2017-02-01 21:44] LABS: COLOR URINE YELLOW (YELLOW); TURBIDITY URINE CLEAR (CLEAR)
[2017-02-01 21:59] LABS: COCAINE NEGATIVE (NEGATIVE); OPIATES NEGATIVE (NEGATIVE)
[2017-02-01 22:00] LABS: BACTERIA URINE NEGATIVE (NEGATIVE); EPITHELIAL URINE NEGATIVE #/HPF (NEGATIVE); RBC URINE NEGATIVE #/HPF (NEGATIVE); WBC URINE RARE #/HPF (NEGATIVE)
[2017-02-01 22:01] LABS: AMPHETAMINE NEGATIVE (NEGATIVE); BARBITURATE NEGATIVE (NEGATIVE)
[2017-02-01 22:24] LABS: CPK 178 IU/L (35-332)
[2017-02-01] MEDS ORDERED: ASCORBIC ACID500 MG PO (23:19)
[2017-02-01] MEDS ORDERED: SAW PALMETTO500 MG PO (23:20)
[2017-02-01] MEDS ORDERED: VITAMIN D10000 UNIT PO (23:20)
[2017-02-01] MEDS ORDERED: TURMERIC ROOT5000 GM PO (23:24)
--- NOTE | 2017-02-02 01:59 | NUR ---
Pt was at home gardening with his when she says he slumped over and went unresponsive, she says he never lost a pulse while waiting for EMS. Pt was very drowsy and slow to respond in the ED but has become more alert as the night has progressed. Pt is A/Ox3. VSS, HR 40-50's. Pt received 1 amp of atropine en route and 0.5 amp in the ED. No complaints of SOB or chest pain.
[2017-02-02 02:23] LABS: CPK 153 IU/L (35-332)
--- NOTE | 2017-02-02 04:42 | NUR ---
Significant events: Pt A/ox3. VSS, SBP 110-120's, low HR of 38-60's. No complaints of dizziness or shortness of breath. Up SBA. Voids per urinal. NPO since midnight with exception of ice chips. Cardiology consult in AM. Atropine at bedside. Slept well this shift. at bedside.
[2017-02-02 08:39] LABS: BLOOD UREA NITROGEN 17 mg/dL (6-24); CALCIUM 7.6 mg/dL (8.5-10.5); CHLORIDE 110 mMol/L (96-110); CO2 28 mMol/L (22-32); CPK 127 IU/L (35-332); CREATININE 0.9 mg/dL (0.6-1.3); ESTIMATED GFR (MDRD EQUATION) > 60; SODIUM 144 mMol/L (135-145)
--- NOTE | 2017-02-02 16:58 | NUR ---
Significant Event: Alert and oriented X 3. Room air. SBP 115, 125 and 107. HR 42, 47 and 52. No complaints of headaches or pain. Atropine at bedside, patches on patients chest. Cardiac diet, no caffeine. NPO after midnight for stress test in the A.M. Echo done this shift. MRI of the brain done this shift. Up with SBA. Peripheral IV to right antecubital with D 5 1/2 NS W/potassium infusing at 75 ml/hr. at bedside. Pleasant and cooperative with cares. Follow up:
--- NOTE | 2017-02-03 04:38 | NUR ---
Significant Event: Patient alert and oriented x3. HRs 36-50s. All other vital signs stable. On RA. No complaints of pain, dizziness, or lightheadedness. Atropine and defibrillator pads remain at bedside. PIV to right AC with D5 1/2 NS with K+ at 75ml/hr. NPO since midnight for Stress Test. Requested consult with case management to talk about insurance and financial options. Up with stand-by assist. at bedside. Calm and cooperative with all cares. Follow up: Will continue to monitor per plan of care.
--- NOTE | 2017-02-03 12:16 | NUR ---
Introduced self and care management services to patient and at bedside. No insurance, concerned about finances, birthday is next month and hasn't activated Medicare yet. They have financial assistance form to fill out and I gave them [employer] card and sent a message to her that they would like some help applying for public assistance and has questions about activating the Medicare. Denies other needs right now. Will follow.
--- NOTE | 2017-02-03 16:27 | NUR ---
Significant Event: Afebrile. HR 50's while awake, 40's with sleep. SBP 115-130's. On RA. MRI (+) for left thalamus CVA. Stress test today. MRA of neck this afternoon. Saline lock. Up ad cesilia in room with telebox. PT/OT/ST evaluated. Follow up: Routine plan of care.
--- NOTE | 2017-02-04 04:56 | NUR ---
Significant Event: A/O, SBP 110-140s, HR 39-50s, no c/o pain, ad cesilia, walked in hallway with , RA, cooperative with cares Follow up: continue to monitor
--- NOTE | 2017-02-04 16:33 | NUR ---
Significant Event: A/O. VSS on RA. Denies pain. Denies numbness and tingling. Up independently in room and in halls. NPO after midnoc for PER in AM. Follow up: dismiss to home 02/05
--- NOTE | 2017-02-05 04:31 | NUR ---
Significant Event: VSS, PT AFEBRILE. CONTINUES ON RA WITH SATS IN THE MID TO UPPER 90'S. PT IS INDEPENDENT. USES CALL LIGHT APPROPRIATELY. A&OX3. NPO SINCE MIDNIGHT FOR PER THIS AM. AT BEDSIDE. PT HAS NO CO PAIN OR DISCOMFORT. Follow up:
[2017-02-05] MEDS ORDERED: LIPITOR40 MG PO (14:47)
[2017-02-05] MEDS ORDERED: XARELTO20 MG PO (14:48)
== END 2017-02-05 15:30 | disposition disaster alternative care site (69) | DRG 64 ==
LOC: GMED 19:49 → GPCU 22:19
PROVIDERS: Emergency Medicine; ADMIT Internal Medicine
DX: I63.212 Cerebral infarction due to unspecified occlusion or stenosis of left vertebral artery (principal); G93.40 Encephalopathy, unspecified; G81.91 Hemiplegia, unspecified affecting right dominant side; Q21.1 Atrial septal defect; R00.1 Bradycardia, unspecified; I69.320 Aphasia following cerebral infarction; I69.392 Facial weakness following cerebral infarction; Z79.01 Long term (current) use of anticoagulants
CPT/HCPCS: A9500; A9577; G0378; G0480; J0461; J2785; J3480; J7030

== ENCOUNTER → 2017-02-01 | Outpatient (CLI) | payer SELFPAY ==
[~2017-02-01] MED LIST: ASCORBIC ACID500 MG PO; LIPITOR40 MG PO; SAW PALMETTO500 MG PO; TURMERIC ROOT5000 GM PO; VITAMIN D10000 UNIT PO; XARELTO20 MG PO
== END | disposition disaster alternative care site (69) ==
LOC: GAMB 19:21
DX: R40.20 Unspecified coma (principal); R53.1 Weakness; R53.83 Other fatigue; R00.1 Bradycardia, unspecified
CPT/HCPCS: A0422; A0425; A0427; J0461; J7030